=== PATIENT | female | born 1950 | race Caucasian/White ===

== ENCOUNTER 2017-06-01 09:02 | Emergency (ER) | payer BC, MEDICARE ==
--- NOTE | 2017-06-01 09:23 | UC ---
Bite Injury/Animal HPI - HPI Summary HPI Summary: 67 YEAR OLD BETSEY PRESENTS WITH COMPLAINS OF LEFT ARM/FOOT BUG BITE. - History of Current Complaint Chief Complaint: [place] Stated Complaint: BUG BITE Time Seen by Provider: 06/01/17 09:18 Onset/Duration: Sudden Onset - Allergies/Home Medications Allergies/Adverse Reactions: Allergies Allergy/AdvReac Type Severity Reaction Status Date / Time tetanus/dipthera vaccine AdvReac Swelling Uncoded 06/01/17 09:08 Home Medications: Home Medications Ascorbic Acid TAB* [Vitamin C TAB*] 06/01/17 [History] Atorvastatin* [Lipitor 20 MG*] 20 mg PO 1700 06/01/17 [History Confirmed ] Calcium Carbonate [Calcium] 06/01/17 [History] Levothyroxine TAB* [Synthroid 75 MCG TAB*] 50 - 75 mcg PO 0800 06/01/17 [ History Confirmed 06/01/17] PMH/Surg Hx/FS Hx/Imm Hx - Surgical History Surgical History: None Surgery Procedure, Year, and Place: Endoscopy 10/12/13 - showed gastritis and H- Pylori - Social History Alcohol Use: None Substance Use Type: None Smoking Status (MU): Former Smoker When Did the Patient Quit Smoking/Using Tobacco: 1989 Review of Systems Constitutional: Negative Skin: Other - LEFT ARM/FOOT INSECT BITE. Eyes: Negative ENT: Negative Respiratory: Negative Cardiovascular: Negative Gastrointestinal: Negative Genitourinary: Negative Motor: Negative Neurovascular: Negative Musculoskeletal: Negative Neurological: Negative Psychological: Negative All Other Systems Reviewed And Are Negative: Yes Physical Exam Triage Information Reviewed: Yes Vital Signs: Initial Vital Signs Temp 36.9 C 06/01/17 09:04 Pulse 66 06/01/17 09:04 Resp 16 06/01/17 09:04 BP 155/88 06/01/17 09:04 Pulse Ox 100 06/01/17 09:04 Eye Exam: Normal ENT Exam: Normal Dental Exam: Normal Neck exam: Normal Neck: Positive: 1 Respiratory Exam: Normal Cardiovascular Exam: Normal Abdominal Exam: Normal Musculoskeletal Exam: Normal Neurological Exam: Normal Psychological Exam: Normal Skin Exam: Normal Skin: Positive: rashes - LEFT ARM/FOOT INSECT BITE Bite Injury Course/Dx - Differential Dx/Diagnosis Provider Diagnoses: INSECT BITE Discharge - Discharge Plan Condition: Stable Disposition: HOME Prescriptions: Cephalexin CAP* [Keflex CAP*] 500 mg PO TID #30 cap Methylprednisolone [Medrol Dosepak 4 MG*] 4 mg PO .SEE JESUS INSTRUCTION #21 tab Mupirocin 2% OINT* [Bactroban 2 % Oint*] 1 applic TOPICAL BID #1 tube Patient Education Materials: Insect Bite or Sting (ED) Referrals: Mark Cuellar MD [Primary Care Provider] - If Needed
[2017-06-01 09:48] VITALS: BP 155/88
== END 2017-06-01 10:08 | disposition home or self-care (01) ==
LOC: UCEAST 09:02
DX: S40.862A Insect bite (nonvenomous) of left upper arm, initial encounter (principal); S90.862A Insect bite (nonvenomous), left foot, initial encounter; W57.XXXA Bitten or stung by nonvenomous insect and other nonvenomous arthropods, initial encounter; Y93.9 Activity, unspecified; Y92.9 Unspecified place or not applicable; Y99.9 Unspecified external cause status; Z87.891 Personal history of nicotine dependence
CPT/HCPCS: 99212; G0463

== ENCOUNTER 2018-03-04 09:29 | Emergency (ER) | payer BC, MEDICARE ==
[2018-03-04] MEDS ORDERED: Dexamethasone IV* 4 MG/ML 1 ML (4 MG) IM ONE (09:49)
[2018-03-04 10:17] VITALS: BP 130/79
--- NOTE | 2018-03-06 07:55 | ED ---
Chet Bonilla Angela, scribed for Elbert Leonard MD on 03/04/18 at 0950 . Allergic Reaction/Systemic - HPI Summary HPI Summary: This pt is a 67 y/o female presenting to [facility] c/o exposure to poison adina 4 days ago. She reports she was exposed to poision adina while she was gardening. Pt notes swelling and mild pruritic rash on her face and arms. Denies any pain. Pt went to see her PCP and was started on Prednisone yesterday. She has had 2 doses of prednisone, 30 mg yesterday and 30 mg today. Today pt notes her face has become worse and is more swollen than yesterday. Denies eye involvement, throat tightening, SOB, nausea, vomiting. - History of Current Complaint Chief Complaint: EDAllergicReaction Time Seen by Provider: 03/04/18 09:43 Hx Obtained From: Patient Onset/Duration: Started days ago, Still Present Timing: Lasting Days Severity Currently: None Pain Intensity: 0 Pain Scale Used: 0-10 Numeric Location: Diffuse Character: Swelling, Pruritus Aggravating Factor(s): Nothing Alleviating Factor(s): Nothing Associated Signs And Symptoms: Positive: Rash. Negative: Difficulty Breathing, Hoarseness, Nausea, Throat Tightening, Vomiting - Allergies/Home Medications Allergies/Adverse Reactions: Allergies Allergy/AdvReac Type Severity Reaction Status Date / Time tetanus/dipthera vaccine AdvReac Swelling Uncoded 03/04/18 09:40 Home Medications: Home Medications Calcium Carbonate [Calcium] 600 mg PO DAILY 03/04/18 [History Confirmed 03/04/18 ] Levothyroxine TAB* [Synthroid TAB*] 75 mcg PO EVERY OTHER DAY 03/04/18 [History Confirmed 03/04/18] Multivitamins/Minerals TAB* [Theragran/minerals TAB*] 1 tab PO DAILY 03/04/18 [ History Confirmed 03/04/18] Imperial-3 Fatty Acids (Nf) [Fish Oil (NF)] 1,000 mg PO DAILY PRN 03/04/18 [ History Confirmed 03/04/18] Vitamin E CAP* 200 unit PO DAILY 03/04/18 [History Confirmed 03/04/18] PMH/Surg Hx/FS Hx/Imm Hx Endocrine/Hematology History: Reports: Hx Thyroid Disease Denies: Hx Diabetes Cardiovascular History: Reports: Hx Hypertension - hx of, has been ok lately Respiratory History: Denies: Hx Asthma, Hx Chronic Obstructive Pulmonary Disease (COPD) GI History: Denies: Hx Ulcer - Cancer History Hx Chemotherapy: No Hx Radiation Therapy: No - Surgical History Surgery Procedure, Year, and Place: Endoscopy 10/12/13 - showed gastritis and H- Pylori Infectious Disease History: No Infectious Disease History: Denies: Hx Clostridium Difficile, Hx Hepatitis, Hx Human Immunodeficiency Virus (HIV), Hx of Known/Suspected MRSA, Hx Shingles, Hx Tuberculosis, Hx Known/ Suspected VRE, Hx Known/Suspected VRSA, History Other Infectious Disease, Traveled Outside the [place] in Last 30 Days - Family History Family History: FHx of Breast CA - Social History Alcohol Use: None Substance Use Type: Reports: None Smoking Status (MU): Former Smoker Review of Systems Negative: Fever Negative: Other - eye involvement of rash Negative: Other - throat tightening Negative: Shortness Of Breath Negative: Vomiting, Nausea Skin: Other - swelling Positive: Rash All Other Systems Reviewed And Are Negative: Yes Physical Exam - Summary Physical Exam Summary: VITAL SIGNS: Reviewed. GENERAL: Patient is a well-developed and nourished female who is lying comfortable in the stretcher. Patient is not in any acute respiratory distress. HEAD AND FACE: No signs of trauma. No ecchymosis, hematomas or skull depressions. No sinus tenderness. EYES: PERRLA, EOMI x 2, No injected conjunctiva, no nystagmus. EARS: Hearing grossly intact. Ear canals and tympanic membranes are within normal limits. MOUTH: Oropharynx within normal limits. NECK: Supple, trachea is midline, no adenopathy, no JVD, no carotid bruit, no c- spine tenderness, neck with full ROM. CHEST: Symmetric, no tenderness at palpation LUNGS: Clear to auscultation bilaterally. No wheezing or crackles. CVS: Regular rate and rhythm, S1 and S2 present, no murmurs or gallops appreciated. ABDOMEN: Soft, non-tender. No signs of distention. No rebound no guarding, and no masses palpated. Bowel sounds are normal. EXTREMITIES: FROM in all major joints, no edema, no cyanosis or clubbing. NEURO: Alert and oriented x 3. No acute neurological deficits. Speech is normal and follows commands. SKIN: Dry and warm. Facial swelling and erythema. There are no vesicular changes. There is no eye involvement. Triage Information Reviewed: Yes Vital Signs On Initial Exam: Initial Vitals Temp Pulse Resp BP Pulse Ox 97.5 F 73 17 143/84 98 03/04/18 09:36 03/04/18 09:36 03/04/18 09:36 03/04/18 09:36 03/04/18 09:36 Vital Signs Reviewed: Yes Diagnostics - Vital Signs Vital Signs Temp Pulse Resp BP Pulse Ox 03/04/18 09:36 97.5 F 73 17 143/84 98 - Laboratory Lab Statement: Any lab studies that have been ordered have been reviewed, and results considered in the medical decision making process. Allergic Reaction Course/Dx - Course Assessment/Plan: This pt is a 67 y/o female presenting to [facility] c/o exposure to poison adina 4 days ago. She reports she was exposed to poision adina while she was gardening. Pt notes swelling and mild pruritic rash on her face and arms. Denies any pain. Pt went to see her PCP and was started on Prednisone yesterday. She has had 2 doses of prednisone, 30 mg yesterday and 30 mg today. Today pt notes her face has become worse and is more swollen than yesterday. Denies eye involvement, throat tightening, SOB, nausea, vomiting. On exam pt has facial swelling and erythema with no vesicular changes and no eye involvement. Pt denies throat tightening, difficulty breathing. Her airway is patent. In the ED course the pt was given Decadron IM as pt is already on a tapering dose of prednisone. Therefore she will be discharged to home with follow up from her PCP. I discussed all the findings and test results with the patient. All questions were answered to patient satisfaction. There were no further complaints or concerns. She is instructed to return to the ED for any worsening or new symptoms, such as throat tightening or difficulty breathing. Pt is hemodynamically stable, alert and oriented x3. - Diagnoses Provider Diagnoses: Contact dermatitis Discharge - Sign-Out/Discharge Documenting (check all that apply): Discharge - discharge to home - Discharge Plan Condition: Stable Disposition: HOME Patient Education Materials: Contact Dermatitis (ED), Poison Adina (ED) Referrals: Haley Olmstead MD [Primary Care Provider] - Additional Instructions: Please follow up with your primary care provider. RETURN TO THE ED FOR ANY NEW OR WORSENING SYMPTOMS. The documentation as recorded by the Chet al Angela accurately reflects the service I personally performed and the decisions made by me, Elbert Leonard MD.
== END 2018-03-04 10:14 | disposition home or self-care (01) ==
LOC: ED 09:29
DX: R21 Rash and other nonspecific skin eruption (principal); L25.9 Unspecified contact dermatitis, unspecified cause
CPT/HCPCS: 96372; 99281; J1100